=== PATIENT | female | born 1980 | race African-American/Black ===

== ENCOUNTER 2020-11-19 21:07 | Emergency (ER) | payer OTHER ==
[~2020-11-19] VITALS: Ht 165.1 cm; Wt 83.9 kg
[~2020-11-19 21:07] MED LIST: MEDROLDOSEPACK PO; ZPAK PO
[2020-11-19 21:43] LABS: ABSOLUTE NEUTROPHILS 2.6 thou/uL (1.4-8.2); BASOPHILS 1.4 % (0.0-2.0); HEMATOCRIT 38.9 % (37.0-47.0); HEMOGLOBIN 12.3 gm/dL (12.0-15.0); LYMPHOCYTES 51.7 % (24.0-44.0); MCH 22.6 pg (26.0-34.0); MCHC 31.6 g/dL (28.0-37.0); MCV 71.7 fL (80.0-100.0); MONOCYTES 7.3 % (1.0-8.0); PLATELET COUNT 266 thou/uL (150-400); POLYS 37.6 % (36.0-66.0); RBC 5.43 mil/uL (4.20-5.00); RDW 17.6 % (10.5-14.5); WBC 6.9 thou/uL (4.0-11.0)
[2020-11-19 21:53] LABS: ANION GAP 11 mmol/L (7-16); BUN 12 mg/dL (7-18); CALCIUM 7.8 mg/dL (8.5-10.1); CHLORIDE 109 mmol/L (98-107); CO2 24 mmol/L (21-32); CREATININE 1.3 mg/dL (0.6-1.0); GLUCOSE 113 mg/dL (74-106); POTASSIUM 3.4 mmol/L (3.5-5.1); SODIUM 144 mmol/L (136-145)
[2020-11-19 22:03] LABS: ALBUMIN 3.4 g/dL (3.4-5.0); SGOT 13 U/L (15-37); SGPT 23 U/L (30-65); TOTAL BILIRUBIN 0.2 mg/dL (0.2-1.0); TOTAL PROTEIN 6.7 g/dL (6.4-8.2); TROPONIN-I <0.06 ng/mL (<0.06)
[2020-11-19 22:47] VITALS: BP 113/72
[2020-11-20 00:29] LABS: ANISOCYTOSIS 1+; HYPOCHROMASIA 2+; MICROCYTES 1+
--- NOTE | 2020-11-20 10:35 | EKG ---
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 : 1980 Requested By: Cl Guerrero Order Number: [id number] MD: Alejandro De La Paz Measurements Intervals [place] Rate: 97 P: 66 DE: 141 QRS: 7 QRSD: 74 T: 3 QT: 347 QTc: 441 Interpretive Statements Sinus rhythm Baseline wander in lead(s) V1,V3,V4,V5 Compared to ECG 01/26/2010 11:40:40 No significant changes Electronically Signed On 11-20-2020 10:35:06 CDT by Alejandro De La Paz [email or web address] <ELECTRONICALLY SIGNED> By: Alejandro De La Paz MD, [facility] 11/20/20 1035 13 Alejandro De La Paz MD, FACC /EPI
== END 2020-11-19 22:47 | disposition home or self-care (01) ==
LOC: ER 21:07
PROVIDERS: Emergency Medicine
DX: R07.89 Other chest pain (principal); F17.210 Nicotine dependence, cigarettes, uncomplicated